=== PATIENT | female | born 1945 | race Caucasian/White ===

== ENCOUNTER → 2022-09-23 | Outpatient (REF) | payer MEDICARE | LOC: M SFHCRHEU 11:20 | PROVIDERS: ATTEND Internal Medicine Rheumatology | DX: R76.8 Other specified abnormal immunological findings in serum (principal); M25.50 Pain in unspecified joint; R20.0 Anesthesia of skin ==

== ENCOUNTER → 2022-09-23 | Outpatient (CLI) | payer MEDICARE | LOC: M RAD 09:35 | PROVIDERS: ATTEND Physician Assistant Medical | DX: K80.20 Calculus of gallbladder without cholecystitis without obstruction (principal) ==